=== PATIENT | female | born 1985 | race Caucasian/White ===

== ENCOUNTER 2018-11-19 16:51 | Emergency (ER) | payer MEDICAID ==
[~2018-11-19] VITALS: Ht 152.4 cm; Wt 113.4 kg
[2018-11-19 17:57] LABS: Basophils # (auto) 0.1 uL; Eosinophils # (auto) 0.3 uL; Eosinophils % (auto) 2.8 % (0.0-7.0); Hemoglobin 12.8 g/dL (12.2-16.2); Monocytes # (auto) 0.5 uL; Nucleated Red Blood Cells % 0.1 %
[2018-11-19 17:59] LABS: Hematocrit 37.5 % (36.0-46.0); Lymphocytes # (auto) 2.2 uL; Lymphocytes % (auto) 24.2 % (10.0-50.0); Mean Corpuscular Hemoglobin 36.3 pg (28.0-32.0); Mean Corpuscular Hgb Conc. 34.3 g/dL (32.0-36.0); Mean Corpuscular Volume 105.9 fL (80.0-100.0); Monocytes % (auto) 5.4 % (0.0-12.0); Neutrophils # (auto) 6.1 uL; Neutrophils % (auto) 66.6 % (37.0-80.0); Platelet Count (auto) 297 10^3/uL (140-450); Red Blood Cells 3.54 10^6/uL (4.0-5.20); Red Cell Distribution Width 15.3 % (11.8-14.3); White Blood Cell 9.2 10^3/uL (4.4-10.8)
[2018-11-19 18:12] LABS: Albumin 4.1 g/dL (3.4-5.0); BUN/Creatinine Ratio 13.3; Calcium 9.4 mg/dL (8.5-10.1); Potassium 3.9 mmol/L (3.5-5.1)
[2018-11-19 18:15] LABS: Bilirubin, Total 0.4 mg/dL (0.2-1.0); Total Protein 8.2 g/dL (6.4-8.2)
[2018-11-19 18:36] LABS: Urine Bacteria FEW /hpf (None Seen); Urine Blood TRACE /uL (Negative); Urine Mucus FEW (None Seen); Urine WBC 1 /hpf (0 - 5)
[2018-11-19 19:49] VITALS: BP 128/74
== END 2018-11-19 19:51 | disposition home or self-care (01) ==
LOC: ER 16:51
DX: K29.70 Gastritis, unspecified, without bleeding (principal)
CPT/HCPCS: 36415; 80053; 81001; 81025; 82140; 85025

== ENCOUNTER 2019-10-06 15:30 | Inpatient (IN) | payer MEDICAID ==
[~2019-10-06] VITALS: Ht 152.4 cm; Wt 111.8 kg
[2019-10-06 16:33] LABS: Urine Pregnacy Test Negative (Negative)
[2019-10-06 16:43] LABS: Amphetamine Screen, Urine NEGATIVE (NEGATIVE); Barbiturate Scree,Urine NEGATIVE (NEGATIVE); Benzodiazephine Screen, Urine NEGATIVE (NEGATIVE); Cannabinoid Screen, Urine NEGATIVE (NEGATIVE); Cocaine Screen, Urine NEGATIVE (NEGATIVE); Opiate Scree,Urine NEGATIVE (NEGATIVE); Phencyclidine Screen, Urine NEGATIVE (NEGATIVE)
[2019-10-06 16:49] LABS: Basophils # (auto) 0.2 uL; Basophils % (auto) 1.3 % (0.0-2.0); Eosinophils # (auto) 0.1 uL; Eosinophils % (auto) 0.7 % (0.0-7.0); Hematocrit 45.2 % (36.0-46.0); Hemoglobin 14.8 g/dL (12.2-16.2); Lymphocytes # (auto) 2.1 uL; Lymphocytes % (auto) 16.5 % (10.0-50.0); Mean Corpuscular Hemoglobin 31.1 pg (28.0-32.0); Mean Corpuscular Hgb Conc. 32.7 g/dL (32.0-36.0); Monocytes # (auto) 0.4 uL; Monocytes % (auto) 3.4 % (0.0-12.0); Neutrophils # (auto) 10.1 uL; Neutrophils % (auto) 78.1 % (37.0-80.0); Nucleated Red Blood Cells % 0.2 %; Platelet Count (auto) 249 10^3/uL (140-450); Red Blood Cells 4.76 10^6/uL (4.0-5.20); Red Cell Distribution Width 15.7 % (11.8-14.3); White Blood Cell 12.9 10^3/uL (4.4-10.8)
[2019-10-06 16:54] LABS: Alanine Aminotransferase 95 U/L (13-56); Albumin 3.8 g/dL (3.4-5.0); Anion Gap 13 (5-15); Aspartate Aminotransferase 391 U/L (15-37); BUN/Creatinine Ratio 13.5; Blood Urea Nitrogen 12 mg/dL (7-18); Calcium 9.4 mg/dL (8.5-10.1); Carbon Dioxide 21 mmol/L (21-32); Chloride 99 mmol/L (98-107); GFR African American 95 mL/min; GFR Non-African American 78 mL/min; Glucose 114 mg/dL (74-106); Potassium 4.3 mmol/L (3.5-5.1); Sodium 133 mmol/L (136-145)
[2019-10-06 16:59] LABS: Alkaline Phosphatase 168 U/L (45-117); Bilirubin, Total 1.3 mg/dL (0.2-1.0); Total Protein 8.1 g/dL (6.4-8.2)
[2019-10-06] MEDS ORDERED: PANTOPRAZOLE 40 MG/10 ML VIAL INJ IV STA (20:26)
[2019-10-06] MEDS ORDERED: SODIUM CHLORIDE 0.9% 1,000 ML IVB ONE (20:26)
[2019-10-06] MEDS ORDERED: MORPHINE SULFATE 4 MG/ML SYR/VIAL IV ONE (20:30)
[2019-10-06] MEDS ORDERED: ONDANSETRON HCL 4 MG/2 ML VIAL IV ONE (20:30)
[2019-10-06] MEDS ORDERED: DOCUSATE SOD 100 MG CAP PO PRN (22:00)
[2019-10-06] MEDS ORDERED: ONDANSETRON HCL 4 MG/2 ML VIAL IV PRN (22:00)
[2019-10-06] MEDS ORDERED: ACETAMINOPHEN 325 MG TAB PO PRN (22:00)
[2019-10-06] MEDS ORDERED: hydrALAZINE HCL 20 MG/ML VL IV ONE (23:30)
[2019-10-06] MEDS: MORPHINE SULFATE 4 MG/ML SYR/VIAL IV PRN (23:49)
[2019-10-07] MEDS: HYDROcodone-ACET 5/325MG TAB PO PRN ×2 (00:17→06:48)
[2019-10-07] MEDS ORDERED: cloNIDine HCL 0.1 MG TAB PO ONE (00:45)
[2019-10-07] MEDS: LORazepam 2MG/ML-1ML VIAL IV PRN ×3 (01:11→20:01)
[2019-10-07] MEDS ORDERED: cloNIDine HCL 0.1 MG TAB PO PRN (02:15)
[2019-10-07] MEDS ORDERED: dilTIAZem 120MG ER CAP PO ONE (02:15)
[2019-10-07] MEDS: SODIUM CHLORIDE 0.9% 1,000 ML IV SCH ×3 (02:30→10:00)
[2019-10-07] MEDS: metroNIDAZOLE 500MG/100ML 100 ML IV SCH ×4 (03:45→22:14)
[2019-10-07] MEDS ORDERED: LABETALOL HCL 5 MG/ML 4ML SYRINGE IV ONE ×2 (04:00→05:00)
[2019-10-07] MEDS: MORPHINE SULFATE 4 MG/ML SYR/VIAL IV PRN ×4 (05:02→20:01)
[2019-10-07 05:29] VITALS: BP 156/96
--- NOTE | 2019-10-07 05:30 | NUR ---
Telemetry admit from [facility] admitted to Telemetry unit after SBAR received. Patient oriented to ELAINA GR, RN primary RN, unit, room, bed, and unit policies regarding patient care and visiting hours. Patient now on continuous telemetry monitoring, tele box # 64 and telemetry reading on arrival to unit is . Patient placed on bedside oxygen, weighed by bedscale and encouraged to call if they need something. All questions and concerns addressed, patient verbalized understanding.
[2019-10-07] MEDS ORDERED: SIMV-8 PO (05:57)
[2019-10-07] MEDS ORDERED: FEXO-38 PO (05:57)
[2019-10-07] MEDS ORDERED: ALLO100T PO (05:57)
[2019-10-07] MEDS ORDERED: DILT1CAP77 PO (05:57)
[2019-10-07] MEDS ORDERED: ASPI81CH43 PO (05:57)
[2019-10-07] MEDS ORDERED: METF-370 PO (05:57)
[2019-10-07 07:01] LABS: Basophils # (auto) 0.1 uL; Basophils % (auto) 1.2 % (0.0-2.0); Eosinophils # (auto) 0 uL; Eosinophils % (auto) 0.4 % (0.0-7.0); Hematocrit 41.1 % (36.0-46.0); Hemoglobin 13.9 g/dL (12.2-16.2); Lymphocytes # (auto) 1.8 uL; Lymphocytes % (auto) 15.5 % (10.0-50.0); Mean Corpuscular Hemoglobin 32.3 pg (28.0-32.0); Mean Corpuscular Hgb Conc. 33.7 g/dL (32.0-36.0); Mean Corpuscular Volume 95.7 fL (80.0-100.0); Monocytes # (auto) 0.5 uL; Monocytes % (auto) 4.7 % (0.0-12.0); Neutrophils # (auto) 9.2 uL; Neutrophils % (auto) 78.2 % (37.0-80.0); Nucleated Red Blood Cells % 0.1 %; Platelet Count (auto) 195 10^3/uL (140-450); Red Cell Distribution Width 16.4 % (11.8-14.3); White Blood Cell 11.7 10^3/uL (4.4-10.8)
[2019-10-07 07:19] LABS: Calcium 8.7 mg/dL (8.5-10.1); Potassium 3.4 mmol/L (3.5-5.1)
[2019-10-07 07:24] LABS: BUN/Creatinine Ratio 12.2
[2019-10-07 08:27] VITALS: BP 129/72
--- NOTE | 2019-10-07 09:24 | NUR ---
IV INSERTION TO LAC #22. FLUSHES WELL, PT TOLERATED PROCEDURE WELL. IV DC'D TO RFA#20, CATHETER INTACT. PT REPORTED HURTING.
[2019-10-07 11:07] LABS: Amylase 199 U/L (25-115)
[2019-10-07 11:19] LABS: Lipase 3384 U/L (73-393)
--- NOTE | 2019-10-07 11:35 | NUR ---
PATIENT TAKEN TO [facility]UC [facility].
[2019-10-07] MEDS: SOD CHL 0.9%/ KCL 40MEQ 1,000 ML IV SCH (11:41)
[2019-10-07] MEDS ORDERED: LABETALOL HCL 5 MG/ML 4ML SYRINGE IV PRN (11:45)
--- NOTE | 2019-10-07 13:15 | NUR ---
PT BACK INTO UNIT. NO DISTRESS NOTED AT MOMENT. CALL LIGHT WITHIN REACH. WILL CONTINUE TO MONITOR.
[2019-10-07 13:24] LABS: INR 1.13 (0.9-1.15); Partial Thromboplastin Time 27.4 sec (23.64-32.05)
[2019-10-07 14:36] VITALS: BP 159/99
--- NOTE | 2019-10-07 14:36 | NUR ---
Social Service consult regarding Advance Directives. Provided pt with information on Advance directives and Durable Power of [place] [employer] Form. Pt verbalized understanding and accepted the information. Will Contact [employer] for any further concerns or issues.
[2019-10-07 17:00] VITALS: BP 140/80
--- NOTE | 2019-10-07 19:30 | NUR ---
Opening Shift Note Assumed care of patient, awake and alert. No S/S of distress/SOB. Patient complain of pain 10/10 on abdomen with anxiety. Will administer prn pain medication. Instructed on POC and to call for assist PRN, will continue to monitor for changes Q1hr and PRN.
[2019-10-07 21:55] VITALS: BP 114/76
[2019-10-08] MEDS: LORazepam 2MG/ML-1ML VIAL IV PRN ×2 (00:04→04:14)
[2019-10-08] MEDS: MORPHINE SULFATE 4 MG/ML SYR/VIAL IV PRN ×5 (00:05→20:29)
[2019-10-08] MEDS: SOD CHL 0.9%/ KCL 40MEQ 1,000 ML IV SCH ×2 (00:20→04:15)
[2019-10-08 05:35] VITALS: BP 155/100
[2019-10-08] MEDS: metroNIDAZOLE 500MG/100ML 100 ML IV SCH (05:49)
[2019-10-08 08:44] VITALS: BP 156/99
--- NOTE | 2019-10-08 09:40 | NUR ---
DR. MCNAMARA IN TO SEE PT. PT IN AGREEMENT WITH PLAN OF CARE. WILL CONTINUE TO MONITOR.
[2019-10-08] MEDS: PANTOPRAZOLE 40 MG TAB PO SCH (10:00)
[2019-10-08] MEDS ORDERED: PANTOPRAZOLE 40 MG TAB PO ONE (10:00)
[2019-10-08] MEDS: chlordiazePOXIDE HCL 5 MG CAP PO PRN ×2 (11:33→18:57)
[2019-10-08] MEDS: LABETALOL HCL 200 MG TAB PO SCH ×2 (11:34→22:02)
[2019-10-08] MEDS: FOLIC ACID 1 MG TAB PO SCH (11:34)
[2019-10-08] MEDS: THIAMINE HCL 100 MG TAB PO SCH (11:34)
[2019-10-08 13:00] VITALS: BP 151/93
--- NOTE | 2019-10-08 14:16 | NUR ---
Received Social Service Consult regarding Substance Abuse Recovery/Rehabilitation. Provided pt with information on Resources. Explained the various organizations and facilities that are available for treatment. Explained that most of them are free. They are located all over the [facility]. Pt verbalized understanding regarding the information. Left packet with pt.
[2019-10-08 16:32] VITALS: BP 153/99
[2019-10-08] MEDS: HYDROcodone-ACET 5/325MG TAB PO PRN ×2 (16:55→22:03)
[2019-10-08 22:00] VITALS: BP 149/97
[2019-10-09] MEDS: MORPHINE SULFATE 4 MG/ML SYR/VIAL IV PRN ×5 (00:53→19:28)
[2019-10-09] MEDS: HYDROcodone-ACET 5/325MG TAB PO PRN (03:11)
[2019-10-09] MEDS: chlordiazePOXIDE HCL 5 MG CAP PO PRN (04:15)
[2019-10-09 05:00] VITALS: BP 153/109
--- NOTE | 2019-10-09 07:30 | NUR ---
Paged hospitalist for something for anxiety per patient request. Spoke with Robby and he seemed like he was going to look at the chart and order something. No new orders at this time. Patient complained of having " crazy anxiety, and I cant stop shaking, and I couldnt get any sleep." Patient is also going through alcohol withdrawels. Librium given per orders. Endorsed to Lamar RIZZO.
[2019-10-09] MEDS: FOLIC ACID 1 MG TAB PO SCH (09:03)
[2019-10-09] MEDS: PANTOPRAZOLE 40 MG TAB PO SCH ×2 (09:03→21:04)
[2019-10-09] MEDS: LABETALOL HCL 200 MG TAB PO SCH ×2 (09:04→21:04)
[2019-10-09] MEDS: THIAMINE HCL 100 MG TAB PO SCH (09:04)
[2019-10-09 09:28] VITALS: BP 165/110
[2019-10-09] MEDS: chlordiazePOXIDE HCL 25 MG CAP PO SCH ×3 (12:22→23:05)
[2019-10-09 13:00] VITALS: BP 137/97
[2019-10-09 16:42] VITALS: BP 163/106
[2019-10-09 17:30] VITALS: BP 158/100
--- NOTE | 2019-10-09 20:00 | NUR ---
Opening Shift Note Assumed care of patient, awake and alert. No S/S of distress/SOB or pain. Instructed on POC and to call for assist PRN, will continue to monitor for changes Q1hr and PRN.
[2019-10-09 22:00] VITALS: BP 141/84
[2019-10-10 05:00] VITALS: BP 154/92
[2019-10-10] MEDS: chlordiazePOXIDE HCL 25 MG CAP PO SCH ×4 (06:00→23:28)
[2019-10-10] MEDS: MORPHINE SULFATE 4 MG/ML SYR/VIAL IV PRN ×3 (06:01→21:13)
[2019-10-10 06:32] LABS: Basophils # (auto) 0.1 uL; Basophils % (auto) 0.7 % (0.0-2.0); Eosinophils # (auto) 0.3 uL; Eosinophils % (auto) 3.4 % (0.0-7.0); Hematocrit 35.7 % (36.0-46.0); Hemoglobin 12.2 g/dL (12.2-16.2); Lymphocytes # (auto) 2.3 uL; Lymphocytes % (auto) 27.9 % (10.0-50.0); Mean Corpuscular Hemoglobin 33.1 pg (28.0-32.0); Mean Corpuscular Hgb Conc. 34.1 g/dL (32.0-36.0); Monocytes # (auto) 0.4 uL; Monocytes % (auto) 5.1 % (0.0-12.0); Neutrophils # (auto) 5.1 uL; Neutrophils % (auto) 62.9 % (37.0-80.0); Nucleated Red Blood Cells % 0.1 %; Platelet Count (auto) 188 10^3/uL (140-450); Red Blood Cells 3.68 10^6/uL (4.0-5.20); White Blood Cell 8.1 10^3/uL (4.4-10.8)
[2019-10-10 06:45] LABS: Potassium 3.6 mmol/L (3.5-5.1)
[2019-10-10 06:55] LABS: BUN/Creatinine Ratio 8.6; Calcium 7.3 mg/dL (8.5-10.1)
--- NOTE | 2019-10-10 08:30 | NUR ---
Opening Note Assumed care of patient, she is A & O x 4, ambulatory, no s/s of distress. She is NPO at this time for procedure today. POC discussed. Bed is in lowest, locked position, call light within reach. will continue to monitor Q1h and PRN.
--- NOTE | 2019-10-10 08:35 | NUR ---
Patient taken to Pre-op for EGD Report given to MATTHIAS Sweet in pre-op. Patient with no s/s of distress at this time.
[2019-10-10 09:00] VITALS: BP 140/93
[2019-10-10] MEDS ORDERED: MORPHINE SULFATE 4 MG/ML SYR/VIAL IV PRN (09:15)
[2019-10-10] MEDS ORDERED: fentaNYL CITRATE 100 MCG/2 ML VL IV PRN (09:15)
[2019-10-10] MEDS ORDERED: HYDROmorphone HCL 2 MG/ML VL IV PRN (09:15)
[2019-10-10] MEDS ORDERED: ACCU-CHEK COMFORT CURVE STRIP VI ONE (09:15)
[2019-10-10] MEDS ORDERED: KETOROLAC TROMETH 15 mg/ml 1ML VL IV ONE (09:15)
[2019-10-10] MEDS ORDERED: METOCLOPRAMIDE HCL 5MG/ml INJ 2ml VIAL IV PRN (09:15)
[2019-10-10] MEDS ORDERED: ONDANSETRON HCL 4 MG/2 ML VIAL ONE (10:00)
[2019-10-10] MEDS ORDERED: fentaNYL CITRATE 100 MCG/2 ML VL ONE (10:00)
[2019-10-10] MEDS ORDERED: MIDAZOLAM HCL 1MG/1ML-2 ML VIAL ONE (10:00)
[2019-10-10] MEDS ORDERED: PROPOFOL 10 MG/ML 20 ML IV ONE (10:00)
--- NOTE | 2019-10-10 10:14 | NUR ---
Patient in procedure Addendum: 10/10/19 at 1252 by Cary Lewis RN Amended: Links added.
--- NOTE | 2019-10-10 10:35 | NUR ---
Report received from [facility]. Patient tolerated EGD under MAC well, patient awake and alert. Will await patient arrival from Post Op
[2019-10-10] MEDS: LABETALOL HCL 200 MG TAB PO SCH ×2 (10:58→21:12)
[2019-10-10] MEDS: FOLIC ACID 1 MG TAB PO SCH (10:58)
[2019-10-10] MEDS: PANTOPRAZOLE 40 MG TAB PO SCH ×2 (10:58→21:12)
[2019-10-10] MEDS: THIAMINE HCL 100 MG TAB PO SCH (10:59)
[2019-10-10] MEDS: HYDROcodone-ACET 5/325MG TAB PO PRN ×2 (11:14→18:22)
--- NOTE | 2019-10-10 15:46 | NUR ---
NUTRITION ASSESSMENT NOTES Please refer to link notes of nutrition screen form filed under the intervention section of the plan of care for further details. Est. Energy Needs: 8370-8502 kcal (12-15 kcal/kg BW). Est. Protein Needs: 50-62 gms/day (0.8-1.0 gms/kg Adj.BW). Will continue to monitor pertinent labs and reassess nutrient need prn Addendum: 10/10/19 at [address] Amended: Links added.
[2019-10-10] MEDS: chlordiazePOXIDE HCL 5 MG CAP PO PRN (16:07)
--- NOTE | 2019-10-10 16:20 | NUR ---
Spoke to Dr. Carnes over Telephone regarding HIDA SCAN results Orders for surgical consult, and diet received, read back and verified.
[2019-10-10 17:30] VITALS: BP 139/94
--- NOTE | 2019-10-10 19:30 | NUR ---
Opening Shift Note Assumed care of patient, awake and alert. No S/S of distress/SOB or pain. Bed in lowest locked position, side rails up x2, call light within reach. Instructed on POC and to call for assist PRN, will continue to monitor for changes Q1hr and PRN.
[2019-10-10 22:00] VITALS: BP 138/80
[2019-10-11] MEDS: MORPHINE SULFATE 4 MG/ML SYR/VIAL IV PRN ×2 (03:14→12:17)
[2019-10-11] MEDS: HYDROcodone-ACET 5/325MG TAB PO PRN ×3 (04:53→20:29)
[2019-10-11 05:00] VITALS: BP 128/78
[2019-10-11] MEDS: chlordiazePOXIDE HCL 25 MG CAP PO SCH ×4 (06:21→23:22)
--- NOTE | 2019-10-11 07:05 | NUR ---
Closing Note Patient lying in bed, eyes closed, respirations even and unlabored, appears asleep. No s/s of distress. Care endorsed to dayshift RN.
--- NOTE | 2019-10-11 08:30 | NUR ---
Opening Note Assumed care of patient, she is A & O x 4, ambulatory, no s/s of distress. POC discussed. Bed is in lowest, locked position, call light within reach. will continue to monitor Q1h and PRN
[2019-10-11 09:00] VITALS: BP 127/72
--- NOTE | 2019-10-11 09:32 | NUR ---
Spoke to Dr. Lopez on telephone Orders to keep patient NPO after midnight on Sunday night for possible surgery. Dr. Pearl will be covering for his this weekend and he will follow up. Orders read back and verified.
[2019-10-11] MEDS: FOLIC ACID 1 MG TAB PO SCH (09:43)
[2019-10-11] MEDS: PANTOPRAZOLE 40 MG TAB PO SCH ×2 (09:43→21:33)
[2019-10-11] MEDS: THIAMINE HCL 100 MG TAB PO SCH (09:45)
[2019-10-11] MEDS: LABETALOL HCL 200 MG TAB PO SCH ×2 (09:45→21:33)
--- NOTE | 2019-10-11 10:05 | NUR ---
AMA to smoke signed and placed in hard chart. Educated patient regarding hospital policies and protocols regarding Smoking. Patient acknowledges and agrees.
--- NOTE | 2019-10-11 10:40 | NUR ---
Dr. Reina at bedside. Orders for diet as tolerated if patient is still having abdominal pain. Patient refused clear liquid diet, she stated "the pain is not because of when I eat, it is all the time."
[2019-10-11 13:00] VITALS: BP 127/68
[2019-10-11 17:00] VITALS: BP 145/80
[2019-10-11] MEDS ORDERED: MAGNESIUM SULFATE 1GM/100ML 100 ML IV ONE (17:15)
[2019-10-11] MEDS ORDERED: CALCIUM CHL 100MG/ML 1,000 MG in D5W 5% 100 ML IV ONE (17:15)
[2019-10-11] MEDS: MORPHINE SULF INJ 2 MG/ML SYRINGE 1ML IV PRN (18:11)
[2019-10-11 22:00] VITALS: BP 148/82
[2019-10-12 05:00] VITALS: BP 146/90
[2019-10-12] MEDS: MORPHINE SULF INJ 2 MG/ML SYRINGE 1ML IV PRN ×2 (05:59→11:04)
[2019-10-12] MEDS: chlordiazePOXIDE HCL 25 MG CAP PO SCH ×2 (05:59→12:38)
[2019-10-12 06:00] LABS: Basophils # (auto) 0 uL; Basophils % (auto) 0.6 % (0.0-2.0); Eosinophils # (auto) 0.2 uL; Hematocrit 35.9 % (36.0-46.0); Hemoglobin 11.8 g/dL (12.2-16.2); Mean Corpuscular Hemoglobin 32.9 pg (28.0-32.0); Mean Corpuscular Hgb Conc. 32.9 g/dL (32.0-36.0); Mean Corpuscular Volume 99.9 fL (80.0-100.0); Monocytes # (auto) 0.4 uL; Monocytes % (auto) 7.3 % (0.0-12.0); Neutrophils # (auto) 2.9 uL; Neutrophils % (auto) 52.1 % (37.0-80.0); Platelet Count (auto) 252 10^3/uL (140-450); Red Blood Cells 3.59 10^6/uL (4.0-5.20); White Blood Cell 5.5 10^3/uL (4.4-10.8)
[2019-10-12 06:15] LABS: Albumin 3.1 g/dL (3.4-5.0); Calcium 8.5 mg/dL (8.5-10.1); Magnesium 1.8 mg/dL (1.6-2.6); Potassium 3.6 mmol/L (3.5-5.1)
[2019-10-12 06:18] LABS: BUN/Creatinine Ratio 12.3; Bilirubin, Total 0.3 mg/dL (0.2-1.0); INR 0.98 (0.9-1.15); Partial Thromboplastin Time 22.2 sec (23.64-32.05); Phosphorus 3.3 mg/dL (2.5-4.90); Total Protein 7.3 g/dL (6.4-8.2)
--- NOTE | 2019-10-12 06:40 | NUR ---
Opening Shift Note Assumed care of patient, awake and alert. No S/S of distress/SOB or pain. Bed in lowest locked position, side rails up x2, call light within reach. Instructed on POC and to call for assist PRN, will continue to monitor for changes Q1hr and PRN. Addendum: 10/12/19 at 0641 by NICOLÁS FORD RN RN CORRECTION: Wrong note, please disregard.
[2019-10-12 08:25] VITALS: BP 156/98
--- NOTE | 2019-10-12 08:30 | NUR ---
Opening Note Assumed care of patient, she is A & O x 4, ambulatory, no s/s of distress. POC discussed. Bed is in lowest, locked position, call light within reach. Will continue to monitor Q1h and PRN
[2019-10-12] MEDS ORDERED: ENOXAPARIN SOD 40 MG/0.4 ML SYRINGE SC SCH (10:00)
[2019-10-12] MEDS: FOLIC ACID 1 MG TAB PO SCH (10:59)
[2019-10-12] MEDS: THIAMINE HCL 100 MG TAB PO SCH (10:59)
[2019-10-12] MEDS: PANTOPRAZOLE 40 MG TAB PO SCH (10:59)
[2019-10-12] MEDS: LABETALOL HCL 200 MG TAB PO SCH (11:02)
[2019-10-12 12:34] VITALS: BP 168/109
--- NOTE | 2019-10-12 12:50 | NUR ---
Blood Pressure elevated BP 163/112, HR 88 after this RN rechecked vital signs. Catapres PRN given. Will recheck in one hour.
--- NOTE | 2019-10-12 13:50 | NUR ---
Blood Pressure Re-check Patient BP 154/99, HR 86, patient with no s/s of distress at this time. Patient is to be discharged.
[2019-10-12 14:40] VITALS: BP 154/99
--- NOTE | 2019-10-12 16:00 | NUR ---
Discharge instructions given as ordered. Encourage to follow up with PMD as instructed. All questions and concerns addressed. Patient verbalized understanding. Medication reconciliation form completed and copy given to patient. IV removed with catheter intact, pressure dressing applied. Telemetry unit returned to ICU. Patient ambulated to vehicle with all personal belongings, accompanied by family member. No distress noted at time of departure.
[2019-10-12] MEDS ORDERED: ASPI81CH43 PO (16:46)
[2019-10-12] MEDS ORDERED: MULTTAB61 PO (16:46)
[2019-10-12] MEDS ORDERED: PANC3000 PO (16:46)
[2019-10-12] MEDS ORDERED: METF-370 PO (16:46)
[2019-10-12] MEDS ORDERED: ACAM1TAB4 PO (16:46)
[2019-10-12] MEDS ORDERED: SIMV-8 PO (16:46)
[2019-10-12] MEDS ORDERED: DILT1CAP77 PO (16:46)
[2019-10-12] MEDS ORDERED: THIA50CA PO (16:46)
[2019-10-12] MEDS ORDERED: FOLI1TAB6 PO (16:46)
[2019-10-12] MEDS ORDERED: LORA0.5T12 PO (16:46)
[2019-10-12] MEDS ORDERED: PANT40TA2 PO (16:53)
== END 2019-10-12 16:00 | disposition home or self-care (01) | DRG 282 ==
LOC: ER 15:30 → TELE-WESTW 15:31
PROVIDERS: ADMIT Hospitalist; ATTEND Internal Medicine
PROC: 0DB68ZX Excision of Stomach, Via Natural or Artificial Opening Endoscopic, Diagnostic (ICD-10-PCS; principal; 2019-10-10 09:56)
DX: K85.20 Alcohol induced acute pancreatitis without necrosis or infection (principal); R65.11 Systemic inflammatory response syndrome (SIRS) of non-infectious origin with acute organ dysfunction; K70.9 Alcoholic liver disease, unspecified; F10.239 Alcohol dependence with withdrawal, unspecified; E66.01 Morbid (severe) obesity due to excess calories; K86.0 Alcohol-induced chronic pancreatitis; Z68.42 Body mass index [BMI] 45.0-49.9, adult; K29.20 Alcoholic gastritis without bleeding; E87.1 Hypo-osmolality and hyponatremia; I10 Essential (primary) hypertension; M10.9 Gout, unspecified; J45.909 Unspecified asthma, uncomplicated; F17.210 Nicotine dependence, cigarettes, uncomplicated; E78.5 Hyperlipidemia, unspecified; Y90.0 Blood alcohol level of less than 20 mg/100 ml; D72.829 Elevated white blood cell count, unspecified; R73.03 Prediabetes; K82.8 Other specified diseases of gallbladder; Z85.9 Personal history of malignant neoplasm, unspecified
CPT/HCPCS: 36415; 43239; 71046; 76705; 78226; 80048; 80053; 80061; 80307; 81025; 82150; 83036; 83690; 83735; 84100; 84443; 84484; 85025; 85610; 85730; 93005; 96365; 96375; C9113; G0378; J2250; J2405; J2704; J3490; J7060

== ENCOUNTER 2021-09-29 13:09 | Emergency (ER) | payer MEDICAID ==
[~2021-09-29] VITALS: Ht 152.4 cm; Wt 115.2 kg
[~2021-09-29 13:09] MED LIST: ACAM1TAB4 PO; ASPI81CH43 PO; DILT-29 PO; FOLI1TAB6 PO; LORA0.5T20 PO; METF-370 PO; MULT-1018 PO; PANC3000 PO; PANT40TA2 PO; SIMV-8 PO; THIA50CA PO
[2021-09-29] MEDS ORDERED: IBUP800T27 PO (13:48)
[2021-09-29] MEDS ORDERED: CEPH-509 PO (13:48)
[2021-09-29 13:52] VITALS: BP 153/87
== END 2021-09-29 14:04 | disposition home or self-care (01) ==
LOC: ER 13:09
DX: L60.0 Ingrowing nail (principal); J45.909 Unspecified asthma, uncomplicated; E78.5 Hyperlipidemia, unspecified; I10 Essential (primary) hypertension; F17.210 Nicotine dependence, cigarettes, uncomplicated; F12.10 Cannabis abuse, uncomplicated

== ENCOUNTER 2022-03-07 16:45 | Emergency (ER) | payer MEDICAID ==
[~2022-03-07] VITALS: Ht 152.4 cm; Wt 118.0 kg
[~2022-03-07 16:45] MED LIST changes: +CEPH-509 PO; +IBUP800T27 PO
[2022-03-07 17:28] LABS: Basophils # (auto) 0.1 10 ^3/uL (0-0.2); Basophils % (auto) 1.2 % (0.0-2.0); Eosinophils # (auto) 0.1 10 ^3/uL (0-0.8); Eosinophils % (auto) 1.9 % (0.0-7.0); Hematocrit 35.7 % (36.0-46.0); Hemoglobin 11.7 g/dL (12.2-16.2); Lymphocytes # (auto) 2.7 10 ^3/uL (0.4-5.4); Lymphocytes % (auto) 44.3 % (10.0-50.0); Mean Corpuscular Hemoglobin 29.4 pg (28.0-32.0); Mean Corpuscular Hgb Conc. 32.8 g/dL (32.0-36.0); Mean Corpuscular Volume 89.5 fL (80.0-100.0); Monocytes # (auto) 0.3 10 ^3/uL (0-1.3); Monocytes % (auto) 5.3 % (0.0-12.0); Neutrophils # (auto) 2.9 10 ^3/uL (1.6-8.6); Neutrophils % (auto) 47.3 % (37.0-80.0); Nucleated Red Blood Cells % 0.1 %; Red Blood Cells 3.98 10^6/uL (4.0-5.20); Red Cell Distribution Width 14.7 % (11.8-14.3); White Blood Cell 6.2 10^3/uL (4.4-10.8)
[2022-03-07 18:08] LABS: Albumin 3.6 g/dL (3.4-5.0); BUN/Creatinine Ratio 31.5; Calcium 8.2 mg/dL (8.5-10.1); Potassium 4.3 mmol/L (3.5-5.1)
[2022-03-07 18:10] LABS: Bilirubin, Total 0.2 mg/dL (0.2-1.0); Total Protein 7.3 g/dL (6.4-8.2)
[2022-03-07] MEDS ORDERED: methylPREDNISolone SOD SUCC 125 MG/2 ML VL IV ONE (18:15)
[2022-03-07 21:41] VITALS: BP 156/93
== END 2022-03-07 21:55 | disposition home or self-care (01) ==
LOC: ER 16:45
DX: R07.89 Other chest pain (principal); I10 Essential (primary) hypertension; J45.909 Unspecified asthma, uncomplicated; M10.9 Gout, unspecified; E78.5 Hyperlipidemia, unspecified; F17.210 Nicotine dependence, cigarettes, uncomplicated; Z79.82 Long term (current) use of aspirin; Z79.1 Long term (current) use of non-steroidal anti-inflammatories (NSAID); Z79.899 Other long term (current) drug therapy; Z20.822 Contact with and (suspected) exposure to COVID-19
CPT/HCPCS: 36415; 71046; 80053; 83880; 84484; 85025; 85379; 87426; 93005; 96374; 99285; J2930

== ENCOUNTER 2022-04-14 21:42 | Inpatient (IN) | payer MEDICAID ==
[~2022-04-14] VITALS: Ht 152.4 cm; Wt 121.8 kg
[2022-04-14 23:59] LABS: Basophils # (auto) 0.1 10 ^3/uL (0-0.2); Basophils % (auto) 0.7 % (0.0-2.0); Eosinophils # (auto) 0.2 10 ^3/uL (0-0.8); Eosinophils % (auto) 2.5 % (0.0-7.0); Hematocrit 35.3 % (36.0-46.0); Hemoglobin 11.3 g/dL (12.2-16.2); Lymphocytes # (auto) 2.8 10 ^3/uL (0.4-5.4); Mean Corpuscular Hemoglobin 29.6 pg (28.0-32.0); Mean Corpuscular Hgb Conc. 32.1 g/dL (32.0-36.0); Mean Corpuscular Volume 92.1 fL (80.0-100.0); Monocytes # (auto) 0.6 10 ^3/uL (0-1.3); Monocytes % (auto) 6.9 % (0.0-12.0); Neutrophils # (auto) 5.3 10 ^3/uL (1.6-8.6); Neutrophils % (auto) 58.9 % (37.0-80.0); Nucleated Red Blood Cells % 0.2 %; Red Blood Cells 3.83 10^6/uL (4.0-5.20); Red Cell Distribution Width 15.5 % (11.8-14.3); White Blood Cell 8.9 10^3/uL (4.4-10.8)
[2022-04-15 00:15] LABS: Urine Bacteria FEW /hpf (None Seen); Urine Blood TRACE /uL (Negative); Urine Hyaline Cast FEW /lpf (0 - 2); Urine Specific Gravity 1.018 (1.001-1.035); Urine WBC 2 /hpf (0 - 5)
[2022-04-15 00:20] LABS: Calcium 8.9 mg/dL (8.5-10.1); Potassium 4.5 mmol/L (3.5-5.1)
[2022-04-15 00:22] LABS: Bilirubin, Total 0.3 mg/dL (0.2-1.0); Total Protein 8.1 g/dL (6.4-8.2)
[2022-04-15 01:20] LABS: BUN/Creatinine Ratio 26.5
[2022-04-15] MEDS ORDERED: SODIUM CHLORIDE 0.9% 2,000 ML IV ONE (07:15)
[2022-04-15] MEDS ORDERED: MORPHINE SULFATE 4 MG/ML SYR/VIAL IV ONE (07:15)
[2022-04-15] MEDS ORDERED: METOCLOPRAMIDE HCL 5MG/ml INJ 2ml VIAL IV ONE (07:15)
[2022-04-15] MEDS ORDERED: DOCUSATE SOD 100 MG CAP PO PRN (09:15)
[2022-04-15] MEDS ORDERED: ACETAMINOPHEN 325 MG TAB PO PRN (09:15)
[2022-04-15] MEDS ORDERED: ONDANSETRON HCL 4 MG/2 ML VIAL IV PRN (09:15)
[2022-04-15] MEDS: ENOXAPARIN SOD 40 MG/0.4 ML SYRINGE SC SCH (11:37)
[2022-04-15] MEDS: SODIUM CHLORIDE 0.9% 1,000 ML IV SCH ×2 (11:42→18:39)
[2022-04-15] MEDS: HYDROcodone-ACET 5/325MG TAB PO PRN (12:13)
[2022-04-15] MEDS: metroNIDAZOLE 500MG/100ML 100 ML IV SCH ×2 (17:53→21:47)
[2022-04-15] MEDS: MORPHINE SULFATE INJ 2 MG/ml SYRG IV PRN ×2 (18:42→22:51)
[2022-04-15] MEDS ORDERED: EMPA1TAB PO (21:21)
[2022-04-15] MEDS ORDERED: DULA1INJ SC (21:23)
[2022-04-15 22:00] VITALS: BP 163/92
[2022-04-16] MEDS: SODIUM CHLORIDE 0.9% 1,000 ML IV SCH ×3 (01:55→18:50)
[2022-04-16] MEDS: MORPHINE SULFATE INJ 2 MG/ml SYRG IV PRN ×3 (03:44→19:32)
[2022-04-16 05:00] VITALS: BP 149/89
[2022-04-16 05:33] LABS: Basophils # (auto) 0.1 10 ^3/uL (0-0.2); Basophils % (auto) 0.9 % (0.0-2.0); Eosinophils # (auto) 0.3 10 ^3/uL (0-0.8); Eosinophils % (auto) 4.1 % (0.0-7.0); Hematocrit 29.9 % (36.0-46.0); Hemoglobin 9.7 g/dL (12.2-16.2); Lymphocytes # (auto) 2.2 10 ^3/uL (0.4-5.4); Lymphocytes % (auto) 36.5 % (10.0-50.0); Mean Corpuscular Hemoglobin 29.7 pg (28.0-32.0); Mean Corpuscular Hgb Conc. 32.5 g/dL (32.0-36.0); Mean Corpuscular Volume 91.4 fL (80.0-100.0); Monocytes # (auto) 0.4 10 ^3/uL (0-1.3); Monocytes % (auto) 7.1 % (0.0-12.0); Neutrophils # (auto) 3.1 10 ^3/uL (1.6-8.6); Neutrophils % (auto) 51.4 % (37.0-80.0); Red Blood Cells 3.27 10^6/uL (4.0-5.20); Red Cell Distribution Width 15.2 % (11.8-14.3); White Blood Cell 6.1 10^3/uL (4.4-10.8)
[2022-04-16] MEDS: metroNIDAZOLE 500MG/100ML 100 ML IV SCH ×3 (05:45→20:56)
[2022-04-16 06:02] LABS: Albumin 3.4 g/dL (3.4-5.0); BUN/Creatinine Ratio 22.2; Potassium 4.8 mmol/L (3.5-5.1)
[2022-04-16 06:05] LABS: Bilirubin, Total 0.3 mg/dL (0.2-1.0); Total Protein 6.5 g/dL (6.4-8.2)
[2022-04-16] MEDS: HYDROcodone-ACET 5/325MG TAB PO PRN ×3 (06:12→21:54)
[2022-04-16 09:00] VITALS: BP 149/90
[2022-04-16] MEDS: ENOXAPARIN SOD 40 MG/0.4 ML SYRINGE SC SCH (10:26)
[2022-04-16] MEDS ORDERED: DEXTROSE (50%) 50ML SYRG IV PRN (13:15)
[2022-04-16 14:00] VITALS: BP 143/93
[2022-04-16 16:33] VITALS: BP 132/92
[2022-04-16] MEDS: InsuLIN REG 1unit/0.01ml Soln (100units/ml) SC SCH ×2 (17:00→21:55)
[2022-04-16] MEDS: ACCU-CHEK COMFORT CURVE STRIP VI SCH ×2 (17:48→21:53)
[2022-04-16] MEDS: hydrALAZINE HCL 20 MG/ML VL IV PRN (21:53)
[2022-04-16 22:00] VITALS: BP 172/101
[2022-04-17] MEDS: SODIUM CHLORIDE 0.9% 1,000 ML IV SCH ×2 (01:20→11:15)
[2022-04-17] MEDS: HYDROcodone-ACET 5/325MG TAB PO PRN ×2 (02:32→12:05)
[2022-04-17] MEDS: MORPHINE SULFATE INJ 2 MG/ml SYRG IV PRN ×2 (04:55→09:21)
[2022-04-17] MEDS: metroNIDAZOLE 500MG/100ML 100 ML IV SCH (04:58)
[2022-04-17 05:00] VITALS: BP 155/97
[2022-04-17] MEDS: InsuLIN REG 1unit/0.01ml Soln (100units/ml) SC SCH ×2 (05:59→11:30)
[2022-04-17 06:10] LABS: Amylase 44 U/L (25-115); Lipase 378 U/L (73-393)
[2022-04-17] MEDS: ACCU-CHEK COMFORT CURVE STRIP VI SCH ×2 (06:10→12:22)
[2022-04-17 08:00] VITALS: BP 168/109
[2022-04-17 09:00] VITALS: BP 168/109
[2022-04-17] MEDS ORDERED: ENOXAPARIN SOD 40 MG/0.4 ML SYRINGE SC SCH (10:00)
[2022-04-17 10:11] LABS: Albumin 3.4 g/dL (3.4-5.0); Calcium 8.1 mg/dL (8.5-10.1); Potassium 4.6 mmol/L (3.5-5.1)
[2022-04-17 10:15] LABS: BUN/Creatinine Ratio 14.9; Bilirubin, Total 0.3 mg/dL (0.2-1.0); Total Protein 6.5 g/dL (6.4-8.2)
[2022-04-17] MEDS: hydrALAZINE HCL 20 MG/ML VL IV PRN (10:25)
[2022-04-17 14:59] VITALS: BP 145/87
== END 2022-04-17 16:07 | disposition home or self-care (01) | DRG 282 ==
LOC: ER 21:42 → OVERFLOW 04-15 15:36 → WEST WING 04-15 18:36
PROVIDERS: ADMIT Internal Medicine; ATTEND Internal Medicine
DX: K85.20 Alcohol induced acute pancreatitis without necrosis or infection (principal); E11.9 Type 2 diabetes mellitus without complications; E78.5 Hyperlipidemia, unspecified; F17.210 Nicotine dependence, cigarettes, uncomplicated; I10 Essential (primary) hypertension; J45.909 Unspecified asthma, uncomplicated; M10.9 Gout, unspecified; Z20.822 Contact with and (suspected) exposure to COVID-19; K86.1 Other chronic pancreatitis; F10.10 Alcohol abuse, uncomplicated; Z79.899 Other long term (current) drug therapy; Z71.41 Alcohol abuse counseling and surveillance of alcoholic
CPT/HCPCS: 36415; 74176; 76705; 80053; 80320; 81001; 82150; 82962; 83690; 85025; 87040; 96361; 96374; 96375; 99291; G0378; J2405; J3490